=== PATIENT | female | born 1955 | race African-American/Black ===

== ENCOUNTER 2016-08-30 16:57 | Observation (INO) | payer OTHER ==
--- NOTE | ~2016-08-30 | CT16 ---
[facility] A Service of [facility] RADIOLOGY TEXT RESULTS PATIENT: JV SHUKLA LOCATION: [facility] 558-01 : 53 UNIT #: [id number] AGE: [address]: Jose Enrique Lafleur MD SEX: F ORDER DR: [id number] [facility] [address]. [place], [place] [address] [id number] I MR#: [id number] #: [id number] NAME: JV SHUKLA : 1955 SEX: F STUDY DATE/TIME: 08/30/2016 19:49 UNIT: [facility] ROOM: [facility] STUDY DESCRIPTION: CT Angio Chest for PE Attending Physician: Jose Enrique Lafleur M.D. Ordering Physician: Angie Ferrell M.D. Primary Care Physician: Beverly Gipson M.D. MEDICAL IMAGING REPORT This report is preliminary unless electronic signature is present EXAM CT angiography chest with contrast pulmonary embolism protocol DATE 08/30/2016 at 19:49 HISTORY 61-year female with nausea, vomiting, diarrhea and abdominal pain today. COMPARISON AP portable chest 08/30/2016 16:43. CTA chest 05/10/2014. PROCEDURE 2 mm axial images from the thoracic inlet to the upper abdomen with IV contrast administration. 3-D coronal MIP reformatted images were obtained. This CT exam was performed with one or more of the following radiation dose reduction techniques: automatic exposure control, adjustment of mA and/or kV according to patient size, and iterative reconstruction. FINDINGS There is no pulmonary embolism, aortic aneurysm or aortic dissection. There is some linear subsegmental atelectatic type changes in the lung bases but no consolidations are identified. There is no pericardial effusion. There is no pleural effusion. No pathologically enlarged lymph nodes are seen. Thyroid gland appears unremarkable. Diverticular changes are seen within the included portion of the colon. Remainder of the included upper abdominal organs are within normal limits. No acute or suspicious osseous abnormalities are identified. IMPRESSION 1. Linear subsegmental atelectatic type changes in the lung bases without consolidation. [facility] A Service of [facility] RADIOLOGY TEXT RESULTS PATIENT: JV SHUKLA LOCATION: [facility] 558-01 : 53 UNIT #: [id number] AGE: [address]: Jose Enrique Lafleur MD SEX: F ORDER DR: 2. No pulmonary embolism. No aortic aneurysm or aortic dissection. 3. Colonic diverticulosis. Dictated by... Meryl Yang M.D. THIS IS AN ELECTRONICALLY VERIFIED REPORT Meryl Yang M.D. at 08/31/2016 2:[address] [facility]/gael TD: 08/31/2016 10:09 JOB #: [id number] MEDICAL IMAGING REPORT COPY
--- NOTE | ~2016-08-30 | EKG ---
PATIENT: JV SHUKLA UNIT #: [id number] Ventricular Rate: 53 BPM Atrial Rate: 53 BPM P-R Interval: 176 ms QRS Duration: 84 ms Q-T Interval: 380 ms QTC Calculation(Bezet): 356 ms P [place]: 42 degrees Calculated R [place]: -7 degrees Calculated T [place]: -15 degrees Diagnosis Line: Sinus bradycardia Diagnosis Line: Possible Inferior infarct , age undetermined Diagnosis Line: Abnormal ECG Diagnosis Line: When compared with ECG of 31-JAN-2016 08:01, Diagnosis Line: Sinus rhythm has replaced Atrial fibrillation Diagnosis Line: Vent. rate has decreased BY 51 BPM Diagnosis Line: QT has shortened Diagnosis Line: Confirmed by MEÑO KELLY MD ([id number]) on Diagnosis Line: 09/01/2016 4:04:10 PM INTERPRETING MD: ROBIN BERG
--- NOTE | ~2016-08-30 | CT2 ---
[facility] A Service of [facility] RADIOLOGY TEXT RESULTS PATIENT: JV SHUKLA LOCATION: [facility] 5501-26 : 53 UNIT #: [id number] AGE: [address]: Jose Enrique Lafleur MD SEX: F ORDER DR: [id number] [facility] [address]. [place], [place] [address] [id number] I MR#: [id number] #: [id number] NAME: JV SHUKLA : 1955 SEX: F STUDY DATE/TIME: 08/30/2016 19:08 UNIT: [facility] ROOM: [facility] STUDY DESCRIPTION: CT Abd and Pelv W Cont Attending Physician: Jose Enrique Lafleur M.D. Ordering Physician: Angie Ferrell M.D. Primary Care Physician: Beverly Gipson M.D. MEDICAL IMAGING REPORT This report is preliminary unless electronic signature is present EXAM CT abdomen and pelvis with contrast DATE OF EXAMINATION 08/30/2016 HISTORY Nausea, vomiting, diarrhea and abdominal pain. COMPARISON MRI abdomen without and with contrast 09/28/2013. PROCEDURE 5 mL axial images from lung bases through lesser trochanters after intravenous contrast administration. Enteric contrast was not administered. This CT exam was performed with one or more of the following radiation dose reduction techniques: automatic exposure control, adjustment of mA and/or kV according to patient size, and iterative reconstruction. FINDINGS CT ABDOMEN: Extensive diverticular changes are seen within the colon. Limited evaluation of bowel due to lack of enteric contrast. The colon does appear mildly and generally thickened which could represent changes of infectious or inflammatory colitis. No free air, free fluid or abscess is seen. The liver, gallbladder, spleen, pancreas, adrenals and kidneys are within normal limits. The appendix is normal. CT PELVIS: Urinary bladder, prostate and rectum are within normal limits. Multiple calcified phleboliths in the pelvis. Degenerative loss of disc height is present at L5-S1. No acute or [facility] A Service [facility] RADIOLOGY TEXT RESULTS PATIENT: JV SHUKLA LOCATION: [facility] : [birth year] UNIT #: [id number] AGE: [address]: Jose Enrique Lafleur MD SEX: F ORDER DR: suspicious osseous abnormalities. Linear subsegmental atelectasis in the lung bases. IMPRESSION 1. There is mild generalized thickening throughout the colon which may represent changes of infectious or inflammatory colitis. Diverticular changes are scattered throughout the colon as well, without compelling CT evidence of acute diverticulitis. 2. The appendix is normal. 3. CT chest performed on the same day has been dictated separately. Dictated by... Meryl Yang M.D. THIS IS AN ELECTRONICALLY VERIFIED REPORT Meryl Yang M.D. at 08/31/2016 2:04 PM [facility]/hi TD: 08/31/2016 10:12 JOB #: [id number] MEDICAL IMAGING REPORT COPY
--- NOTE | ~2016-08-30 | EKG ---
PATIENT: JV SHUKLA UNIT #: [id number] Ventricular Rate: 54 BPM Atrial Rate: 54 BPM P-R Interval: 174 ms QRS Duration: 78 ms Q-T Interval: 378 ms QTC Calculation(Bezet): 358 ms P [place]: 64 degrees Calculated R [place]: -3 degrees Calculated T [place]: -12 degrees Diagnosis Line: Sinus bradycardia Diagnosis Line: Inferior infarct (cited on or before 30-AUG-2016) Diagnosis Line: Abnormal ECG Diagnosis Line: When compared with ECG of 30-AUG-2016 16:06, Diagnosis Line: (unconfirmed) Diagnosis Line: No significant change was found Diagnosis Line: Confirmed by MEÑO KELLY MD ([id number]) on Diagnosis Line: 09/01/2016 4:04:24 PM INTERPRETING MD: ROBIN BERG
--- NOTE | ~2016-08-30 | CR72 ---
[facility] A Service of [facility] RADIOLOGY TEXT RESULTS PATIENT: JV SHUKLA LOCATION: [place] [address] : 53 UNIT #: [id number] AGE: [address]: Jose Enrique Lafleur MD SEX: F ORDER DR: [id number] [facility] [address] [place], [place] [address] [id number] I MR#: [id number] #: [id number] NAME: JV SHUKLA : 1955 SEX: F STUDY DATE/TIME: 08/30/2016 16:43 UNIT: [facility] ROOM: [facility] STUDY DESCRIPTION: CR Chest Single View Portable Attending Physician: Kathy Powell M.D. Ordering Physician: Angie Ferrell M.D. Primary Care Physician: Beverly Gipson M.D. MEDICAL IMAGING REPORT This report is preliminary unless electronic signature is present EXAM Portable chest HISTORY Chest pain today. FINDINGS Minimal left basilar atelectasis or infiltrate. Remainder of the lungs are clear. Cardiac size and pulmonary vascularity are within normal limits and are stable compared to 01/31/2016. Metal anchors in the right humeral head. IMPRESSION Minimal left basilar subsegmental atelectasis or infiltrate. Remainder of the lungs are clear. Dictated by... Kody Cm M.D. THIS IS AN ELECTRONICALLY VERIFIED REPORT Kody Cm M.D. at 08/31/2016 2:17 PM [facility]/rudy TD: 08/31/2016 07:27 JOB #: [id number] MEDICAL IMAGING REPORT COPY
--- NOTE | ~2016-08-30 | HP ---
Unit #: [id number] #: [id number] Patient: JV SHUKLA [id number] [address] [place], [place] [address] [id number] I MR#: [id number] NAME: JV SHUKLA ROOM: [address] Age: 61 Sex: F Admission Date: 08/30/2016 : 1955 Attending Physician: Kathy Powell M.D. Primary Care Physician: Beverly Gipson M.D. HISTORY AND PHYSICAL CHIEF COMPLAINT Intractable nausea, vomiting, and diarrhea. HISTORY OF PRESENT ILLNESS This pleasant healthy 61-year-old female is admitted for gastroenteritis and chest pain. The patient was in her usual state of health until this morning when she felt hot, then developed intractable nonbloody nausea, vomiting, and diarrhea with lower abdominal crampy discomfort, fever, sweats, chills, and left chest pain. Patient states that her left chest pain is worse with cough, as well as with nausea and vomiting. She presented to this emergency department with stable vital signs and mildly hypertensive. She was treated with Zofran, Protonix, Bentyl, IV fluids, Lomotil, and Lortab, and currently is being given a dose of Zosyn. In the course of her evaluation, a CT scan of the abdomen and pelvis is most consistent with likely infectious process in the colon. The patient states that she was on antibiotics until about a week ago. PAST MEDICAL HISTORY Rotator cuff repair. ALLERGIES None. HOME MEDICATIONS Flexeril and vitamins. FAMILY HISTORY Negative for GI disease. SOCIAL HISTORY The patient lives alone. She is a lifelong nonsmoker and seldom drinks alcohol. REVIEW OF SYSTEMS Notable for nausea, vomiting, diarrhea, chest discomfort, fever, sweats, chills, cough, chest pain, and right leg issues for which she was recently placed on antibiotics and Flexeril. All other systems were reviewed and are negative. PHYSICAL EXAMINATION GENERAL: A pleasant, moderately obese, 61-year-old female who looks to be feeling ill. Unit #: [id number] #: [id number] Patient: JV SHUKLA VITAL SIGNS: Temperature 97.4, pulse 63, respirations 16, blood pressure 150/72, and O2 saturation is 100% on room air. HEENT: Eyes PERRLA. Extraocular muscles are intact. Pharynx is benign. NECK: Supple without adenopathy or thyromegaly. CHEST: Clear. Patient has reproducible left chest wall tenderness. CARDIAC: Normal S1 and S2, without S3, S4, or murmur. ABDOMEN: Bowel sounds are present. No hepatosplenomegaly, tenderness, or masses. EXTREMITIES: Without clubbing, cyanosis, or edema. Pedal pulses are present. NEUROLOGIC: Patient is awake, alert, and oriented. Cranial nerves are intact. Equal strength throughout. DIAGNOSTIC STUDIES LABORATORY: Hematocrit is 42.8, white blood count is 11.8, and normal platelet count. Negative cardiac markers. SMA-12: Glucose is 114 and sodium 132. Normal BNP, amylase, and lipase. IMAGING: Chest x-ray shows left atelectasis versus infiltrate. CTA of the chest shows atelectasis in the lung bases and diverticular disease. CT scan of the abdomen and pelvis shows mild generalized thickening in the colon consistent with infectious or inflammatory process. Diverticular disease also noted. CARDIOLOGY: EKG shows a sinus bradycardia, rate 54, with Q noted in AVF. ASSESSMENT 1. Gastroenteritis with intractable symptoms. 2. Mild hyponatremia. 3. Mild sinus bradycardia. 4. Reproducible left chest wall tenderness. PLANS 1. IV fluids and supportive treatment. 2. Stool cultures. 3. Repeat labs in the morning. 4. SCDs for DVT prophylaxis. 5. Obtain TSH. 1. Dictated by Fanny Brenner/brittany TD: 08/30/2016 22:15 JOB #: [id number] HISTORY AND PHYSICAL X Kathy Powell MD X HISTORY AND PHYSICAL
[2016-08-30 17:40] LABS: POC - CKMB 1.3 ng/mL (0.0-7.9); POC - TROPONIN <0.05 ng/mL (<=0.05)
[2016-08-30 18:05] LABS: BASOPHIL% 0.4 % (0-2.5); DIFF IND NO; EOSINOPHIL% 0.4 % (0.0-7.0); HEMATOCRIT 42.8 % (35.0-45.0); HEMOGLOBIN 13.7 gm/dL (12.0-16.0); LYMPHOCYTE# 1.4 X10e3 (1.0-3.5); LYMPHOCYTE% 12.1 % (17.0-45.0); MEAN CELL VOLUME 92.5 FL (83-96); MEAN CORPUSCULAR HEMOGLOBIN 29.6 PG (28-34); MEAN PLATELET VOLUME 8.5 FL (6.5-11.5); MONOCYTE# 0.6 X10e3 (0-1.0); MONOCYTE% 4.9 % (3.0-12.0); NEUTROPHIL# 9.7 X10e3 (1.5-7.1); NEUTROPHIL% 82.2 % (40-75); PLATELET COUNT 268 X10e3 (140-420); RED BLOOD COUNT 4.63 X10e (3.90-5.30); RED CELL DISTRIBUTION WIDTH 13.3 % (11.0-15.5); WHITE BLOOD COUNT 11.8 X10e3 (4.0-10.5)
[2016-08-30 18:29] LABS: ALBUMIN SERUM 4.2 g/dL (3.5-5.0); BILIRUBIN, DIRECT 0.2 mg/dL (0.0-0.2); BILIRUBIN,INDIRECT 0.8 mg/dL (0.0-0.9); PROTEIN TOTAL SERUM 8.1 g/dL (6.0-8.3)
[2016-08-30 18:55] LABS: BLOOD UREA NITROGEN 13 mg/dL (9-23); BUN/CREATININE RATIO 18.57; CALCIUM SERUM 8.8 mg/dL (8.4-10.2); CARBON DIOXIDE 24 mmol/L (22-31); CHLORIDE 103 mmol/L (100-111); CREATININE SERUM 0.7 mg/dL (0.6-1.4); GLOM FILT RATE Estimated ABOVE60 mL/min (>60); GLUCOSE FASTING 114 mg/dL (70-110); POTASSIUM 3.6 mmol/L (3.5-5.1); SODIUM 132 mmol/L (135-145)
[2016-08-30 20:26] LABS: URINE SOURCE CLEAN CATCH
[2016-08-30 20:35] LABS: URINE APPEARANCE CLEAR; URINE BILIRUBIN NEG (NEG); URINE BLOOD NEG (NEG); URINE COLOR YELLOW; URINE GLUCOSE NEG (NEG); URINE KETONE 1+ (NEG); URINE LEUKOCYTE ESTERASE NEG (NEG); URINE NITRATE NEG (NEG); URINE PROTEIN NEG (NEG); URINE SPECIFIC GRAVITY 1.033 (1.003-1.035); URINE UROBILINOGEN 0.2 MG/DL (NEG)
[2016-08-30 20:44] LABS: CULTURE INDICATED? NO
[2016-08-31] MEDS ORDERED: FLEXERIL PO (05:19)
[2016-08-31] MEDS ORDERED: THERA-M CAPLET1 EAC1 PO (05:20)
[2016-08-31 06:38] LABS: %MB 1.3 % (0.0-4.0); MB 1.9 ng/ml
[2016-08-31 06:56] LABS: BASOPHIL% 0.1 % (0-2.5); HEMATOCRIT 38.9 % (35.0-45.0); HEMOGLOBIN 12.5 gm/dL (12.0-16.0); LYMPHOCYTE# 1.3 X10e3 (1.0-3.5); LYMPHOCYTE% 10.7 % (17.0-45.0); MEAN CELL VOLUME 91.8 FL (83-96); MEAN CORPUSCULAR HEMOGLOBIN 29.5 PG (28-34); MEAN CORPUSCULAR HGB CONC 32.2 g/dL (30-36); MEAN PLATELET VOLUME 8.3 FL (6.5-11.5); MONOCYTE# 0.5 X10e3 (0-1.0); MONOCYTE% 4.1 % (3.0-12.0); NEUTROPHIL# 10.6 X10e3 (1.5-7.1); NEUTROPHIL% 85.1 % (40-75); PLATELET COUNT 269 X10e3 (140-420); RED BLOOD COUNT 4.24 X10e (3.90-5.30); RED CELL DISTRIBUTION WIDTH 12.9 % (11.0-15.5); WHITE BLOOD COUNT 12.5 X10e3 (4.0-10.5)
[2016-08-31 07:08] LABS: BLOOD UREA NITROGEN 9 mg/dL (9-23); CALCIUM SERUM 8.5 mg/dL (8.4-10.2); CARBON DIOXIDE 22 mmol/L (22-31); CHLORIDE 100 mmol/L (100-111); CREATININE SERUM 0.5 mg/dL (0.6-1.4); GLOM FILT RATE Estimated ABOVE60 mL/min (>60); GLUCOSE FASTING 98 mg/dL (70-110); POTASSIUM 3.3 mmol/L (3.5-5.1); SODIUM 130 mmol/L (135-145)
[2016-08-31 07:14] LABS: DIFF IND NO
[2016-08-31] MEDS ORDERED: FLAGYL PO (12:39)
[2016-08-31] MEDS ORDERED: ZOFRAN PO (12:40)
== END 2016-08-31 13:57 | disposition home or self-care (01) | DRG 392 ==
LOC: CED 16:57 → CEDOF 21:30 → C5B 08-31 02:21
PROVIDERS: Emergency Medicine; Internal Medicine
DX: K52.9 Noninfective gastroenteritis and colitis, unspecified (principal); J98.11 Atelectasis; K57.30 Diverticulosis of large intestine without perforation or abscess without bleeding; R07.89 Other chest pain; E87.1 Hypo-osmolality and hyponatremia; Z79.899 Other long term (current) drug therapy; R00.1 Bradycardia, unspecified
CPT/HCPCS: 36415; 71010; 71275; 74177; 80048; 80076; 81003; 82150; 82550; 82553; 83690; 83880; 84443; 84484; 85025; 93005; 96361; 96365; 96372; 96374; 96375; 99285; C9113; G0378; J0500; J2405; J2543; J2550; Q9967

== ENCOUNTER 2016-11-21 10:47 | Emergency (ER) | payer OTHER ==
--- NOTE | ~2016-11-21 | EKG ---
PATIENT: JV SHUKLA UNIT #: [id number] Ventricular Rate: 66 BPM Atrial Rate: 66 BPM P-R Interval: 182 ms QRS Duration: 74 ms Q-T Interval: 374 ms QTC Calculation(Bezet): 392 ms P [place]: 41 degrees Calculated R [place]: -11 degrees Calculated T [place]: -14 degrees Diagnosis Line: Normal sinus rhythm with sinus arrhythmia Diagnosis Line: Minimal voltage criteria for LVH, may be normal Diagnosis Line: variant Diagnosis Line: Inferior infarct (cited on or before 30-AUG-2016) Diagnosis Line: Abnormal ECG Diagnosis Line: When compared with ECG of 30-AUG-2016 16:37, Diagnosis Line: No significant change was found Diagnosis Line: Confirmed by PAVITHRA MURPHY MD ([id number]) on Diagnosis Line: 11/23/2016 9:37:44 PM INTERPRETING MD: JEFFREY BERG
[~2016-11-21 10:47] MED LIST: FLAGYL PO; FLEXERIL PO; THERA-M CAPLET1 EAC1 PO; ZOFRAN PO
[2016-11-21 12:02] LABS: BASOPHIL# 0.1 X10e3 (0-0.3); BASOPHIL% 0.5 % (0-2.5); EOSINOPHIL# 0.1 X10e3 (0-0.7); EOSINOPHIL% 0.5 % (0.0-7.0); HEMATOCRIT 42.8 % (35.0-45.0); HEMOGLOBIN 13.8 gm/dL (12.0-16.0); LYMPHOCYTE# 1.3 X10e3 (1.0-3.5); LYMPHOCYTE% 12.5 % (17.0-45.0); MEAN CELL VOLUME 93.8 FL (83-96); MEAN CORPUSCULAR HEMOGLOBIN 30.1 PG (28-34); MEAN CORPUSCULAR HGB CONC 32.1 g/dL (30-36); MEAN PLATELET VOLUME 8.8 FL (6.5-11.5); MONOCYTE# 0.6 X10e3 (0-1.0); MONOCYTE% 5.7 % (3.0-12.0); NEUTROPHIL# 8.7 X10e3 (1.5-7.1); NEUTROPHIL% 80.8 % (40-75); PLATELET COUNT 262 X10e3 (140-420); RED BLOOD COUNT 4.57 X10e (3.90-5.30); RED CELL DISTRIBUTION WIDTH 12.7 % (11.0-15.5); WHITE BLOOD COUNT 10.8 X10e3 (4.0-10.5)
[2016-11-21 12:04] LABS: DIFF IND NO
[2016-11-21 12:06] LABS: POC - CKMB <1.0 ng/mL (0.0-7.9); POC - TROPONIN <0.05 ng/mL (<=0.05)
[2016-11-21 12:30] LABS: ALBUMIN SERUM 4.3 g/dL (3.5-5.0); BILIRUBIN, DIRECT 0.2 mg/dL (0.0-0.2); BILIRUBIN,INDIRECT 0.4 mg/dL (0.0-0.9); BILIRUBIN,TOTAL 0.6 mg/dL (0.2-2.0); BUN/CREATININE RATIO 18.33; CALCIUM SERUM 9.2 mg/dL (8.4-10.2); CREATININE SERUM 0.6 mg/dL (0.6-1.4); GLOM FILT RATE Estimated 112.4 mL/min (>60); POTASSIUM 3.5 mmol/L (3.5-5.1); PROTEIN TOTAL SERUM 8.1 g/dL (6.0-8.3)
[2016-11-21 13:35] LABS: URINE APPEARANCE CLEAR; URINE BILIRUBIN NEG (NEG); URINE BLOOD NEG (NEG); URINE COLOR YELLOW; URINE GLUCOSE NEG (NEG); URINE KETONE NEG (NEG); URINE LEUKOCYTE ESTERASE NEG (NEG); URINE NITRATE NEG (NEG); URINE PH 8.5 (5-8); URINE PROTEIN NEG (NEG); URINE SOURCE CLEAN CATCH; URINE SPECIFIC GRAVITY 1.015 (1.003-1.035); URINE UROBILINOGEN 0.2 MG/DL (NEG)
== END 2016-11-21 14:09 | disposition home or self-care (01) ==
LOC: CED 10:47
PROVIDERS: Nurse Practitioner
DX: R10.9 Unspecified abdominal pain (principal); Z98.890 Other specified postprocedural states; Z91.013 Allergy to seafood
CPT/HCPCS: 36415; 80048; 80076; 81003; 82553; 83690; 84484; 85025; 93005; 96361; 96372; 96374; 96375; 99284; C9113; J0500; J2270; J2405

== ENCOUNTER 2016-11-29 10:21 | Inpatient (IN) | payer OTHER ==
--- NOTE | ~2016-11-29 | EKG ---
PATIENT: JV SHUKLA UNIT #: [id number] Ventricular Rate: 53 BPM Atrial Rate: 53 BPM P-R Interval: 156 ms QRS Duration: 78 ms Q-T Interval: 452 ms QTC Calculation(Bezet): 424 ms P [place]: 40 degrees Calculated R [place]: -11 degrees Calculated T [place]: 4 degrees Diagnosis Line: Sinus bradycardia Diagnosis Line: Possible Left atrial enlargement Diagnosis Line: Borderline ECG Diagnosis Line: When compared with ECG of 29-NOV-2016 14:29, Diagnosis Line: No significant change was found Diagnosis Line: Confirmed by LILIA MCCAIN MD ([id number]) on Diagnosis Line: 11/30/2016 11:00:53 PM INTERPRETING MD: MAXIM
--- NOTE | ~2016-11-29 | CO ---
Unit #: [id number] #: [id number] Patient: JV HUGGINS [id number] [address] [place], [place] [address] [id number] I MR#: [id number] NAME: JV HUGGINS ROOM: 326 Age: 61 Sex: F Admission Date: 11/29/2016 : 1955 Attending Physician: Win Chun M.D. Primary Care Physician: Beverly Gipson M.D. Consultation Date: 11/30/2016 CONSULTATION REPORT PRIMARY CARE PHYSICIAN Beverly Gipson. REASON FOR CONSULTATION Nausea, vomiting, diarrhea, and abdominal pain. HISTORY OF PRESENT ILLNESS Ms. Huggins is a very pleasant 61-year-old female, who works in the [employer]. She says she had three distinct episodes of nausea, vomiting, diarrhea, and abdominal pain that brought her to the emergency room each time and each time, she is being kept in for a few hours and discharged home. This time she comes in and has similar history. She also mentions significant cramping in the lower abdomen. There are no precipitating factors. She denies any history of intake for any outside food. There is no history of any fever or urinary symptoms. In fact off admission, she mentioned severe chest pain in the entire chest, and the patient is crying with the pain, has been on morphine. She is also being evaluated for cardiac etiology, upper chest pain, and is undergoing EKG and sequential cardiac enzymes. Initial evaluation in the emergency room showed presence of diverticulosis without any diverticulitis. PAST MEDICAL HISTORY Significant for a similar admission for nausea, vomiting, and diarrhea in August. PAST SURGICAL HISTORY Included a rotator cuff repair surgery. SOCIAL HISTORY Lives at home by herself. Does not smoke or drink alcohol. FAMILY HISTORY Both her parents are with lung cancer. ALLERGIES Shrimp and shellfish. HOME MEDICATIONS Include Zofran and dicyclomine. REVIEW OF SYSTEMS Detailed review of organ systems does not recent weight loss. No history of fever, chills, or rigors. No history of headache, seizures, chest Unit #: [id number] #: [id number] Patient: JV HUGGINS pain, or syncope. No history of cough, expectoration, or hemoptysis. No history of dysuria, hematuria, or pyuria. No history of focal seizures or extremity weakness. Rest of review of organ systems is unremarkable. PHYSICAL EXAMINATION GENERAL: She is alert and oriented, and appears quite uncomfortable because of the pain. VITAL SIGNS: Indicate a temperature of 98.0, pulse is 59 per minute and regular, respiratory rate is 18, and blood pressure is 168/69. She weighs 208 pounds and appears well nourished. HEENT: She has no pallor, icterus, lymphadenopathy, or peripheral edema. CARDIOVASCULAR: Normal heart sounds. No murmurs on auscultation. LUNGS: Reveal normal breath sounds. Good air entry. The patient does have tenderness over the chest wall. ABDOMEN: Soft and nontender. Liver and spleen not palpable. Bowel sounds normal. DIAGNOSTIC STUDIES LABORATORY RESULTS: Shows a white count of 12.4 without any left shift. The hemoglobin, hematocrit, and platelet counts are normal. Serum chemistry shows normal BUN and creatinine and electrolytes. Albumin being 3.9 yesterday. LFTs normal. It is noteworthy that the patient has also had a CT of the abdomen that shows diverticulosis without any diverticulitis. CLINICAL IMPRESSION 1. The patient is currently having significant chest pain and is being given frequent morphine and is undergoing cardiac evaluation. It will be best to wait for any GI evaluation before cardiac evaluation is finished and at least an acute coronary syndrome is ruled out. 2. Earlier before the patient was seen, I advised her to have an upper GI endoscopy and a sigmoidoscopy and this be post pond until after she is feeling much better from a standpoint of chest pain. Thank you very much for asking me to see this pleasant woman. I appreciate the consult. Dictated by... Fanny Mims/delma TD: 12/03/2016 15:40 JOB #: [id number] CC: Fanny Garcia M.D. Unit #: [id number] #: [id number] Patient: JV HUGGINS CONSULTATION REPORT Page 1 of 1 X Chip Ulrich MD CONSULTATION REPORT
--- NOTE | ~2016-11-29 | HP ---
Unit #: [id number] #: [id number] Patient: JV SHUKLA [id number] [address] [place], [place] [address] [id number] I MR#: [id number] NAME: JV SHUKLA ROOM: [address] Age: 61 Sex: F Admission Date: 11/29/2016 : 1955 Attending Physician: Eve Alcocer M.D. Primary Care Physician: Beverly Gipson M.D. HISTORY AND PHYSICAL CHIEF COMPLAINT Abdominal pain, nausea, vomiting, and diarrhea. HISTORY OF PRESENT ILLNESS The patient is a 61-year-old female with no significant past medical history who presented to the emergency department for evaluation of the above. The patient states that she has had a two to three-week history of intermittent abdominal pain, vomiting, and diarrhea. She states that she was feeling somewhat better for two to three days, but the symptoms returning this morning, and so she presented to the emergency department for further evaluation. She states that the pain is in the lower abdomen. She describes it as "cramping." There are no exacerbating or alleviating factors. She has had approximately 10 bouts of emesis and 10 bouts of diarrhea within the past 24 hours. She denies any urinary symptoms and no fever. During the course of her evaluation in the emergency department, she also developed chest pain in the mid chest that she describes as "sharp." It does not radiate. She never had a stress test and never had a cardiac catheterization. She did have a colonoscopy off [facility] more than five years ago (no records). In the emergency department, a CT of the abdomen and pelvis was done and showed diverticulosis but no evidence of diverticulitis. Initial EKG showed sinus bradycardia with a rate of 55 beats per minute. She is being admitted to [facility] for evaluation and further treatment. PAST MEDICAL HISTORY Admission to [facility] August 30, 2016, for intractable nausea, vomiting, diarrhea, and chest pain. There is no Discharge Summary, but it appears that she was discharged home the next day. PAST SURGICAL HISTORY Rotator cuff repair. SOCIAL HISTORY The patient lives alone. There is no tobacco or alcohol use. FAMILY HISTORY Notable for both parents having lung cancer. ALLERGIES Unit #: [id number] #: [id number] Patient: JV SHUKLA Shrimp and shellfish. HOME MEDICATIONS 1. Zofran. 2. Dicyclomine. Home medications will need to be reviewed and verified. REVIEW OF SYSTEMS A complete review of systems is negative except as indicated in the History of Present Illness. PHYSICAL EXAMINATION VITAL SIGNS: Temperature is 98, pulse 77, respirations 16, blood pressure 170/73, and oxygen saturation 99% on room air. GENERAL: Patient is an female who is awake, alert, and in no acute distress. HEENT: Head is atraumatic. Mucous membranes are dry. NECK: Supple. Trachea is midline. CARDIOVASCULAR: Regular rate and rhythm. LUNGS: Clear to auscultation bilaterally with no increased work of breathing. ABDOMEN: Soft. She is tender to palpation in the lower quadrants. Bowel sounds are present in all four quadrants. EXTREMITIES: Nontender with no pedal edema. NEUROLOGIC: Patient is awake and alert. She follows commands. PSYCHIATRIC: Mood and affect are normal. Patient is cooperative. SKIN: Skin of examined areas is warm and dry. DIAGNOSTIC STUDIES LABORATORY: Complete blood count is essentially normal. Comprehensive metabolic panel is notable for potassium of 3.4. Urinalysis is notable for 1+ ketones. IMAGING: CT of the abdomen and pelvis shows diverticulosis but no evidence of diverticulitis. CARDIOLOGY: EKG showed sinus bradycardia with a rate of 55 beats per minute. ASSESSMENT The patient is a 61-year-old female with: 1. Abdominal pain. 2. Intractable nausea, vomiting, and diarrhea. 3. Chest pain. 4. Hypokalemia. PLAN 1. Admit to intermediate level for observation. 2. N.p.o. and will advance to clear liquids as tolerated. 3. Normal saline at 125 mL/hour. 4. P.r.n. morphine. 5. P.r.n. Zofran. 6. Stool for ova and parasites, C. difficile, and culture and sensitivity. 7. Serial cardiac enzymes. 8. Check magnesium level. 9. Potassium/magnesium protocol. Unit #: [id number] #: [id number] Patient: JV SHUKLA 10. SCDs for DVT prophylaxis. 11. Repeat labs in the morning. 12. Protonix 40 mg IV daily. 13. Additional workup and consultants based on above. 1. Dictated by Fanny Garcia TD: 11/29/2016 18:16 JOB #: [id number] HISTORY AND PHYSICAL Page 1 of 1 X Eve Alcocer MD X HISTORY AND PHYSICAL
--- NOTE | ~2016-11-29 | EKG ---
PATIENT: JV SHUKLA UNIT #: [id number] Ventricular Rate: 55 BPM Atrial Rate: 55 BPM P-R Interval: 168 ms QRS Duration: 78 ms Q-T Interval: 418 ms QTC Calculation(Bezet): 399 ms P [place]: 39 degrees Calculated R [place]: 1 degrees Calculated T [place]: 7 degrees Diagnosis Line: Sinus bradycardia Diagnosis Line: Otherwise normal ECG Diagnosis Line: When compared with ECG of 21-NOV-2016 11:28, Diagnosis Line: Nonspecific T wave abnormality no longer evident Diagnosis Line: in Anterior leads Diagnosis Line: Confirmed by LILIA MCCAIN MD ([id number]) on Diagnosis Line: 11/29/2016 10:21:29 PM INTERPRETING MD: MAXIM
--- NOTE | ~2016-11-29 | OR ---
Unit #: [id number] #: [id number] Patient: JV SHUKLA [id number] [address] [address] [id number] I MR#: [id number] NAME: JV SHUKLA ROOM: [facility] Date of Procedure: 11/29/2016 Admission Date: 11/29/2016 Surgeon: Chip Ulrich M.D. : 1955 Attending Physician: Win Chun M.D. Primary Care Physician: Beverly Gipson M.D. OPERATIVE REPORT ADDITIONAL ATTENDING PHYSICIAN Win Chun M.D. PRIMARY CARE PHYSICIAN Beverly Gipson. PREOPERATIVE DIAGNOSES Nausea, vomiting, and epigastric pain. PROCEDURE PERFORMED Upper gastrointestinal endoscopy. POSTOPERATIVE DIAGNOSES Completely normal examination up to third part of duodenum. A biopsy was obtained from the antrum for CLOtest. RECOMMENDATIONS The patient can be discharged home today and she will have an outpatient colonoscopy in the next few weeks which is already being scheduled. SEDATION USED MAC. DESCRIPTION OF PROCEDURE Following detailed explanation of potential risks and complications of an upper endoscopy, namely perforation, bleeding, and complication related to sedation, the patient was brought to GI lab and laid in the left lateral decubitus position. Lubricated tip of the Olympus video upper endoscope was passed through the bite block into the proximal esophagus under direct vision. The entire esophageal mucosa was examined and appeared normal. Z-line was nicely demarcated, there being no esophagitis or hiatus hernia. The scope was then advanced into the gastric cavity and the latter was insufflated. Mucosa of the fundus, body, and antrum was examined and appeared unremarkable. Pylorus was intubated with visualization of the normal duodenal bulb and second and third part of duodenum. Upon withdrawal and retroflexion, incisura, cardia, and greater curve was examined and no additional findings were noted. A biopsy was obtained from the antrum for CLOtest. The scope was then withdrawn in the distal esophagus. Entire esophageal mucosa was examined all the way up to pharynx. No additional findings were noted. The scope was then withdrawn all the way up to pharynx. No additional findings were noted. The Unit #: [id number] #: [id number] Patient: JV SHUKLA patient tolerated the procedure without any postprocedure complications. Dictated by... Fanny Mims TD: 12/03/2016 14:09 JOB #: [id number] OPERATIVE REPORT Page 1 of 1 X Chip Ulrich MD X PROCEDURE OPERATIVE NOTE
--- NOTE | ~2016-11-29 | ST ---
Unit #: [id number] #: [id number] Patient: JV SHUKLA [id number] [address] [address] [id number] I MR#: [id number] NAME: JV SHUKLA : 1955 SEX: F STUDY DATE/TIME: 12/01/2016 UNIT: C3A PCU ROOM: [address] [place] [address] DESCRIPTION: EKG portion of exercise stress Attending Physician: Win Chun M.D. Primary Care Physician: Beverly Gipson M.D. CARDIOLOGY REPORT EXAM EKG portion of exercise Cardiolite stress. REASON FOR EXAM Chest pain and nausea and vomiting. DESCRIPTION Baseline EKG reveals sinus rhythm with a ventricular rate of [address]-T wave changes noted. The patient exercised on a treadmill according to Ken protocol for 7 minutes and 42 seconds, achieving a workload of 9.60 METs. Maximal heart rate is 151 BPM, which represents 96% of the maximal age predicted heart rate. Maximal blood pressure was 162/84 mmHg. There were no complaints of chest pain. There were no sustained arrhythmias noted. There were no ST-T wave changes to suggest ischemia. The test was stopped due to protocol completion. IMPRESSION 1. Negative EKG portion of exercise Cardiolite stress test. 2. There were no complaints of chest pain. 3. There were no sustained arrhythmias noted. 4. There were no ST-T wave changes to suggest ischemia. 5. Please correlate with Cardiolite images. Dictated by... Samantha Ware APRN for Fanny Nathan/lora TD: 12/02/2016 08:25 JOB #: [id number] CARDIOLOGY REPORT Page 1 of 1 X CARDIOLOGY REPORT
--- NOTE | ~2016-11-29 | EKG ---
PATIENT: JV SHUKLA UNIT #: [id number] Ventricular Rate: 61 BPM Atrial Rate: 61 BPM P-R Interval: 146 ms QRS Duration: 80 ms Q-T Interval: 406 ms QTC Calculation(Bezet): 408 ms Calculated R [place]: -26 degrees Calculated T [place]: -21 degrees Diagnosis Line: Normal sinus rhythm Diagnosis Line: Inferior infarct , age undetermined Diagnosis Line: Abnormal ECG Diagnosis Line: No previous ECGs available Diagnosis Line: Confirmed by LILIA MCCAIN MD ([id number]) on Diagnosis Line: 11/30/2016 10:57:25 PM INTERPRETING MD: MAXIM
--- NOTE | ~2016-11-29 | CT2 ---
[facility] A Service of [facility] RADIOLOGY TEXT RESULTS PATIENT: JV SHUKLA LOCATION: [facility] 326-01 : [birth year] UNIT #: [id number] AGE: [address]: Eve Alcocer MD SEX: F ORDER DR: [id number] [id number] [facility]. [place], [place] [address] [id number] I MR#: [id number] Acc #: [id number] NAME: JV SHUKLA : 1955 SEX: F STUDY DATE/TIME: 11/29/2016 13:03 UNIT: [address] ROOM: [facility] STUDY DESCRIPTION: CT Abd and Pelv W Cont Attending Physician: Eve Alcocer M.D. Ordering Physician: Flako Gutiérrez M.D. Primary Care Physician: Beverly Gipson M.D. MEDICAL IMAGING REPORT This report is preliminary unless electronic signature is present EXAM CT abdomen and pelvis with contrast. INDICATIONS Generalized abdominal pain and nausea and diarrhea for a week. Comparison study is 08/30/16. TECHNIQUE Patient was given 100 mL Isovue-370 and axial 5-mm images were obtained through the abdomen and pelvis. This CT exam was performed with one or more of the following radiation dose reduction techniques: Automatic exposure control, adjustment of mA and/or kV according to patient size, and iterative reconstruction. FINDINGS Lung bases are clear. The liver, gallbladder, spleen, pancreas, adrenal glands and kidneys are normal in appearance. The aorta is normal in size and there is no adenopathy. There are numerous colonic diva, most numerous in the left colon. There is no evidence of colitis or diverticulitis. The appendix is normal. The bladder, uterus and adnexal regions are normal. The bones show degenerative changes in the lumbar spine facet joints. IMPRESSION 1. Colonic diverticulosis without evidence of diverticulitis or colitis or obstruction. 2. The appendix is normal. 3. The study is otherwise normal. Dictated by... [facility] A Service of [facility] RADIOLOGY TEXT RESULTS PATIENT: JV SHUKLA LOCATION: [facility] 326- : [birth year] UNIT #: [id number] AGE: [address]: Eve Alcocer MD SEX: F ORDER DR: Reed Morillo M.D. THIS IS AN ELECTRONICALLY VERIFIED REPORT Reed Morillo M.D. at 11/30/2016 7:27 AM SWAPNA/mirta TD: 11/29/2016 22:23 JOB #: [id number] MEDICAL IMAGING REPORT Page 1 of 1 COPY
--- NOTE | ~2016-11-29 | DS ---
Unit #: [id number] #: [id number] Patient: JV SHUKLA [id number] [address] [place], [place] [address] [id number] I MR#: [id number] NAME: JV SHUKLA ROOM: 326 Age: 61 Sex: F Admission Date: 11/29/2016 : 1955 Discharge Date: 12/02/2016 Attending Physician: Win Chun M.D. Primary Care Physician: Beverly Gipson M.D. DISCHARGE SUMMARY DISCHARGE DIAGNOSES 1. Suprapubic abdominal pain. No urinary tract infection. Patient will have endoscopy per Dr. Ulrich today. 2. Intractable nausea and vomiting, resolved at this time. 3. Diarrhea on admission, resolved without any additional bowel movements during this hospitalization. 4. Marijuana usage. Spoken with patient about cannabinoid-induced nausea and vomiting (1) cessation. 5. Atypical chest pain. Had normal stress test. 6. Hypokalemia and hypomagnesemia, likely due to vomiting and diarrhea. Resolved with replacement. SAFEKEEPING CLERK Dr. Ulrich of gastroenterology. PROCEDURES Patient will have endoscopy per Dr. Ulrich today. Please refer to his full dictated report for further details. DIAGNOSTIC STUDIES CARDIOVASCULAR: Patient also had a stress test on 12/01/16 and it was reported to be normal per cardiology. Two-dimensional echo: Summary of systolic ventricular function is normal, estimated to be 60%. Mild concentric left ventricular hypertrophy. Mild tricuspid regurgitation is present. Mild pulmonary valvular regurgitation is present. Right ventricular systolic pressure is 32 mmHg. No evidence of any pericardial effusion. IMAGING: CT abdomen and pelvis on 11/29/16. Impression: 1. Colonic diverticulosis without evidence of diverticulitis or colitis or obstruction. 2. The appendix is normal. 3. The study is otherwise normal. LABORATORY: Today's labs include BMP: Glucose 77, BUN 10, creatinine 0.6, sodium 140, potassium 3.9, chloride 111, CO2 22, calcium is 8.2, magnesium is 2.1 when assessed, AST was 17, ALT was 10, and alk phos was 44. Amylase 21 and lipase 18. Cardiac enzymes were all unremarkable serially. CBC with WBC of 8.2, RBC 4.04, hemoglobin 12.1, hematocrit is 37.6, MCV is 93.3, MCH is 30.1, MCHC is 32.2, RDW 12.7, platelets are 237, and MPV is 8.5. HOSPITAL COURSE Unit #: [id number] #: [id number] Patient: JV SHUKLA Patient is a pleasant 61-year-old, -[place] female with past medical history of nothing significant, except for intractable nausea, vomiting, and diarrhea and was hospitalized back on August 30, 2016, and was discharged the following day who presented back to the emergency department for, again, persistent symptoms of abdominal pain, nausea, vomiting, and diarrhea. Please note that patient said that she had a D and C after one episode of menstruation. This was about three weeks ago. Patient states that she tolerated the procedure well without any additional recurrent bleeding after the first two initial days and no abdominal pain or fever at home. No other drainage. She presented back to the emergency department with symptoms of abdominal pain, nausea, vomiting, and diarrhea. She said that she had done better 2-3 days after initial visit back in August. Pain is described as cramping in her suprapubic region. There are no alleviating or exacerbating factors. She had about 10 bouts of emesis and 10 bouts of diarrhea 24 hours prior to admission. Denies any urinary symptoms. Denies fevers. Denies leg pain. In the emergency department, during workup, she developed chest pain described as burning like in her throat. She was admitted for intractable nausea and vomiting as well as atypical chest pain. Patient was unable to provide any stool sample since she has been hospitalized here. Dr. Ulrich of gastroenterology was consulted who had originally planned for an upper endoscopy and sigmoidoscopy. Patient was ready following her prep when she began to develop severe chest pain described as burning sensation in her throat as well as with nausea and vomiting. Therefore, endoscopy was held at that time. (2) were done, which were both unremarkable. Cardiac enzymes were obtained, which were nondetectable. She had a stress test and echo the following day, which were stated to be normal and the echo result as stated above so that her chest pain was atypical. Therefore, we will work up for intractable nausea and vomiting through endoscopy per Dr. Ulrich's guidance. I did perform a urine drug screen, which was positive for marijuana. Patient tells me that she uses marijuana socially. She would smoke a joint every now and then and she drinks alcohol. I stressed to patient to abstain from alcohol and marijuana and it likely is inducing cannabinoid hyperemesis. She voiced understanding. At this time, she is stable and, if stable after endoscopy with Dr. Ulrich, she could be discharged home. DISCHARGE CONDITION Stable to home. DISCHARGE INSTRUCTIONS 1. Follow up with primary care physician within 1-2 weeks. 2. Follow up with Dr. Ulrich as needed. 3. Activities: None restricted. 4. Diet: None restricted. DISCHARGE MEDICATIONS Her meds include: 1. Lopressor 50 mg orally twice daily. Hold if systolic blood pressure is less than 110. 2. Vitamin E 400 units orally daily. 3. Multivitamin 1 tablet orally daily. 4. Vitamin D 400 units orally daily. 5. Vitamin B12 1000 mcg orally daily. 6. Protonix 40 mg orally daily. Unit #: [id number] #: [id number] Patient: JV SHUKLA Dictated by... Mame Lilly PA-C for Fanny Bullock/morelia TD: 12/03/2016 07:53 JOB #: [id number] DISCHARGE SUMMARY Page 1 of 1 X X DISCHARGE SUMMARY
--- NOTE | ~2016-11-29 | TH ---
Unit #: [id number] #: [id number] Patient: JV SHUKLA [id number] [address] [address] [id number] I MR#: [id number] NAME: JV SHUKLA : 1955 SEX: F STUDY DATE/TIME: 12/01/2016 UNIT: C3A PCU ROOM: [facility] STUDY DESCRIPTION: Exercise stress test - Nuclear Attending Physician: Win Chun M.D. Primary Care Physician: Beverly Gipson M.D. CARDIOLOGY REPORT PROCEDURE PERFORMED Exercise Cardiolite stress test - Nuclear portion. PROCEDURE Using technetium 99m-labeled Cardiolite, rest and stress SPECT images were obtained. Multiple SPECT images were obtained in various views, including horizontal and vertical long axis and short axis views of the left ventricle. Images were obtained by gated SPECT method. The patient was administered 10.95 mCi of Cardiolite at rest. The patient was administered 32.7 mCi of Cardiolite at peak exercise. Total exercise time is 7 minutes and 42 seconds. On the stress images, there is normal perfusion noted. The rest images show normal perfusion. Comparing the rest and stress images, there is no stress-induced ischemia noted. The left ventricular ejection fraction is calculated to be 64%. There is no focal wall motion abnormality seen. CONCLUSION 1. No stress-induced ischemia noted. 2. The left ventricular ejection fraction is calculated to be 64%. 3. There is no focal wall motion abnormality seen. 4. Normal exercise Cardiolite stress test. Dictated by... Fanny Nathan/navi TD: 12/01/2016 14:21 JOB #: [id number] CARDIOLOGY REPORT Page 1 of 1 X Padmini Escobedo MD <ELECTRONICALLY SIGNED> 01/16/17 1429 CARDIOLOGY REPORT
[2016-11-29 11:12] LABS: BASOPHIL% 0.2 % (0-2.5); EOSINOPHIL# 0.1 X10e3 (0-0.7); HEMOGLOBIN 13.5 gm/dL (12.0-16.0); LYMPHOCYTE# 1.6 X10e3 (1.0-3.5); LYMPHOCYTE% 16.6 % (17.0-45.0); MEAN CELL VOLUME 93.1 FL (83-96); MEAN CORPUSCULAR HEMOGLOBIN 29.9 PG (28-34); MEAN CORPUSCULAR HGB CONC 32.1 g/dL (30-36); MEAN PLATELET VOLUME 8.2 FL (6.5-11.5); MONOCYTE# 0.5 X10e3 (0-1.0); MONOCYTE% 4.9 % (3.0-12.0); NEUTROPHIL# 7.3 X10e3 (1.5-7.1); NEUTROPHIL% 77.3 % (40-75); PLATELET COUNT 265 X10e3 (140-420); RED BLOOD COUNT 4.51 X10e (3.90-5.30); RED CELL DISTRIBUTION WIDTH 12.7 % (11.0-15.5); WHITE BLOOD COUNT 9.5 X10e3 (4.0-10.5)
[2016-11-29 11:19] LABS: DIFF IND NO
[2016-11-29 11:39] LABS: ALBUMIN SERUM 3.9 g/dL (3.5-5.0); BILIRUBIN, DIRECT 0.1 mg/dL (0.0-0.2); BILIRUBIN,INDIRECT 0.8 mg/dL (0.0-0.9); BILIRUBIN,TOTAL 0.9 mg/dL (0.2-2.0); BUN/CREATININE RATIO 16.66; CALCIUM SERUM 8.9 mg/dL (8.4-10.2); CREATININE SERUM 0.6 mg/dL (0.6-1.4); GLOM FILT RATE Estimated 112.4 mL/min (>60); POTASSIUM 3.4 mmol/L (3.5-5.1); PROTEIN TOTAL SERUM 7.7 g/dL (6.0-8.3)
[2016-11-29 12:14] LABS: URINE SOURCE CLEAN CATCH
[2016-11-29 12:19] LABS: URINE APPEARANCE CLEAR; URINE BILIRUBIN NEG (NEG); URINE BLOOD NEG (NEG); URINE COLOR YELLOW; URINE GLUCOSE NEG (NEG); URINE KETONE 1+ (NEG); URINE LEUKOCYTE ESTERASE NEG (NEG); URINE NITRATE NEG (NEG); URINE PROTEIN NEG (NEG); URINE SPECIFIC GRAVITY 1.011 (1.003-1.035); URINE UROBILINOGEN 0.2 MG/DL (NEG)
[2016-11-29 12:35] LABS: CULTURE INDICATED? NO
[2016-11-29] MEDS ORDERED: NATURAL VITA400 UNI3 PO (16:17)
[2016-11-29] MEDS ORDERED: VITAMIN B12 PO (16:18)
[2016-11-29] MEDS ORDERED: MULTIVITAMINS1 EAC2 PO (16:18)
[2016-11-29 17:55] LABS: MAGNESIUM 1.7 mg/dL (1.6-3.0)
[2016-11-29 18:15] LABS: %MB 1.3 % (0.0-4.0); MB 1.3 ng/ml
[2016-11-29] MEDS ORDERED: VITAMIN D400 UNI1 PO (19:25)
[2016-11-30 06:02] LABS: HEMATOCRIT 38.7 % (35.0-45.0); HEMOGLOBIN 12.5 gm/dL (12.0-16.0); MEAN CELL VOLUME 93.6 FL (83-96); MEAN CORPUSCULAR HEMOGLOBIN 30.3 PG (28-34); MEAN CORPUSCULAR HGB CONC 32.4 g/dL (30-36); MEAN PLATELET VOLUME 8.1 FL (6.5-11.5); RED BLOOD COUNT 4.13 X10e (3.90-5.30); RED CELL DISTRIBUTION WIDTH 12.5 % (11.0-15.5); WHITE BLOOD COUNT 12.4 X10e3 (4.0-10.5)
[2016-11-30 06:41] LABS: ALBUMIN SERUM 3.4 g/dL (3.5-5.0); BILIRUBIN,TOTAL 1.6 mg/dL (0.2-2.0); BUN/CREATININE RATIO 13.33; CALCIUM SERUM 8.1 mg/dL (8.4-10.2); CREATININE SERUM 0.6 mg/dL (0.6-1.4); GLOM FILT RATE Estimated 112.4 mL/min (>60); MAGNESIUM 2.4 mg/dL (1.6-3.0); POTASSIUM 3.5 mmol/L (3.5-5.1); PROTEIN TOTAL SERUM 6.6 g/dL (6.0-8.3)
[2016-11-30 15:03] LABS: AMPHETAMINE NEG (NEG); BARBITURATES NEG (NEG); BENZODIAZEPINES NEG (NEG); COCAINE NEG (NEG); MARIJUANA POS (NEG); OPIATES POS (NEG); TRICYCLIC ANTIDEPRESSANTS NEG (NEG); U METHADONE NEG (NEG)
[2016-11-30 18:20] LABS: %MB 1.6 % (0.0-4.0); MB 1.5 ng/ml
[2016-11-30 21:24] LABS: %MB 1.6 % (0.0-4.0); MB 1.4 ng/ml
[2016-12-01 03:08] LABS: HEMATOCRIT 42.7 % (35.0-45.0); HEMOGLOBIN 13.7 gm/dL (12.0-16.0); MEAN CORPUSCULAR HEMOGLOBIN 29.9 PG (28-34); MEAN CORPUSCULAR HGB CONC 32.1 g/dL (30-36); MEAN PLATELET VOLUME 8.5 FL (6.5-11.5); RED BLOOD COUNT 4.59 X10e (3.90-5.30); RED CELL DISTRIBUTION WIDTH 12.5 % (11.0-15.5); WHITE BLOOD COUNT 11.8 X10e3 (4.0-10.5)
[2016-12-01 05:05] LABS: ALBUMIN SERUM 3.9 g/dL (3.5-5.0); BILIRUBIN,TOTAL 1.6 mg/dL (0.2-2.0); CALCIUM SERUM 8.5 mg/dL (8.4-10.2); CREATININE SERUM 0.5 mg/dL (0.6-1.4); GLOM FILT RATE Estimated 119.4 mL/min (>60); MAGNESIUM 1.9 mg/dL (1.6-3.0); POTASSIUM 3.9 mmol/L (3.5-5.1); PROTEIN TOTAL SERUM 7.3 g/dL (6.0-8.3)
[2016-12-01 05:23] LABS: %MB 1.5 % (0.0-4.0); MB 1.4 ng/ml
[2016-12-02 07:29] LABS: HEMATOCRIT 37.7 % (35.0-45.0); HEMOGLOBIN 12.1 gm/dL (12.0-16.0); MEAN CELL VOLUME 93.3 FL (83-96); MEAN CORPUSCULAR HEMOGLOBIN 30.1 PG (28-34); MEAN CORPUSCULAR HGB CONC 32.2 g/dL (30-36); MEAN PLATELET VOLUME 8.5 FL (6.5-11.5); RED BLOOD COUNT 4.04 X10e (3.90-5.30); RED CELL DISTRIBUTION WIDTH 12.7 % (11.0-15.5); WHITE BLOOD COUNT 8.2 X10e3 (4.0-10.5)
[2016-12-02 08:20] LABS: BILIRUBIN,TOTAL 1.4 mg/dL (0.2-2.0); BUN/CREATININE RATIO 16.66; CALCIUM SERUM 8.2 mg/dL (8.4-10.2); CREATININE SERUM 0.6 mg/dL (0.6-1.4); GLOM FILT RATE Estimated 112.4 mL/min (>60); MAGNESIUM 2.1 mg/dL (1.6-3.0); POTASSIUM 3.9 mmol/L (3.5-5.1); PROTEIN TOTAL SERUM 5.5 g/dL (6.0-8.3)
[2016-12-02] MEDS ORDERED: LOPRESSOR PO (18:20)
[2016-12-02] MEDS ORDERED: PROTONIX PO (18:22)
[2016-12-02] MEDS ORDERED: ZOFRAN PO (18:22)
== END 2016-12-02 22:00 | disposition home or self-care (01) | DRG 392 ==
LOC: CED 10:21 → C3A PCU 16:10 → CEDOF 16:10 → CED 16:53 → CEDOF 16:53 → C3A PCU 18:36 → CEDOF 18:36 → C3A PCU 11-30 08:34
PROVIDERS: Emergency Medicine; Family Medicine; Physician Assistant Medical
PROC: 0DB78ZX Excision of Stomach, Pylorus, Via Natural or Artificial Opening Endoscopic, Diagnostic (ICD-10-PCS; principal; 2016-11-29)
PROC: B24BZZZ Ultrasonography of Heart with Aorta (ICD-10-PCS; 2016-12-01)
DX: R10.30 Lower abdominal pain, unspecified (principal); E83.42 Hypomagnesemia; K57.90 Diverticulosis of intestine, part unspecified, without perforation or abscess without bleeding; R11.2 Nausea with vomiting, unspecified; R19.7 Diarrhea, unspecified; F12.90 Cannabis use, unspecified, uncomplicated; R07.89 Other chest pain; E87.6 Hypokalemia; Z91.013 Allergy to seafood; Z80.1 Family history of malignant neoplasm of trachea, bronchus and lung
CPT/HCPCS: 36415; 74177; 78452; 80048; 80053; 80061; 80076; 80307; 81003; 82550; 82553; 83690; 83735; 84132; 84484; 85025; 85027; 87077; 93005; 93017; 93306; 96361; 96372; 96374; 96375; 99285; A9500; C9113; J0500; J2060; J2270; J2405; J2765; J3475; Q9967

== ENCOUNTER → 2017-01-01 | Day surgery (SDC) | payer OTHER ==
[~2017-01-01] MED LIST changes: +LOPRESSOR PO; +MULTIVITAMINS1 EAC2 PO; +NATURAL VITA400 UNI3 PO; +PROTONIX PO; +VITAMIN B12 PO; +VITAMIN D400 UNI1 PO
--- NOTE | ~2017-01-01 | OR ---
Unit #: [id number] #: [id number] Patient: JV SHUKLA [id number] [address] [address] [id number] MR#: [id number] NAME: JV SHUKLA ROOM: Date of Procedure: 01/01/2017 Admission Date: 01/01/2017 Surgeon: Chip Ulrich M.D. : 1955 Attending Physician: Chip Ulrich M.D. Referring Physician: Chip Ulrich M.D. Primary Care Physician: Beverly Gipson M.D. OPERATIVE REPORT PRIMARY CARE PHYSICIAN Dr. Beverly Gipson. PREOPERATIVE DIAGNOSIS Colorectal cancer screening. PROCEDURES PERFORMED Colonoscopy and polypectomy. POSTOPERATIVE DIAGNOSES 1. The patient had 2 sessile polyps, one each in the proximal ascending and proximal transverse colon. These were both about 5 mm each and were removed using snare polypectomy. 2. Mild sigmoid wang diverticulosis. 3. Rest of the examination up to cecum and terminal ileum was normal. The quality of the prep was excellent. 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 RECOMMENDATIONS Repeat colonoscopy in 5 years. SEDATION USED MAC. DESCRIPTION OF PROCEDURE Following detailed explanation of the potential risks and complications of a colonoscopy, namely perforation, bleeding, complication related to sedation, the patient was brought to GI lab and laid in the left lateral decubitus position. A digital rectal examination was performed, which was normal. Lubricated tip of the Olympus video colonoscope was inserted through the anus and advanced under direct vision. The scope was advanced and passed up to sigmoid into descending colon. Multiple medium-sized diverticula were noted in this area. The scope tip was then navigated all the way up to cecum with visualization of the ileocecal valve and the appendiceal orifice. Preparation was excellent with good visualization and photodocumentation was obtained. Last few inches of the terminal ileum were also visualized and appeared normal. Successive segments of the colonic mucosa were examined upon withdrawal. The patient was noted to have 2 sessile polyps, the first one was in the proximal ascending colon, the second one in the proximal transverse colon. Both were diminutive and were removed using snare polypectomy. They were retrieved Unit #: [id number] #: [id number] Patient: JV SHUKLA and sent for histology. The patient also had 2 lipomas in the ascending colon, which were coincidental. In addition, mild diffuse wang diverticulosis was also noted. The scope was then withdrawn. The patient did not have any hemorrhoids at anal verge. She tolerated the procedure without any postprocedure complications. Dictated by... Fanny Mims/delma TD: 01/02/2017 00:49 JOB #: [id number] OPERATIVE REPORT Page 1 of 1 X Chip Ulrich MD X PROCEDURE OPERATIVE NOTE
== END | disposition home or self-care (01) ==
LOC: COPS 10:25
DX: Z12.11 Encounter for screening for malignant neoplasm of colon (principal); K63.5 Polyp of colon; K57.30 Diverticulosis of large intestine without perforation or abscess without bleeding; K21.9 Gastro-esophageal reflux disease without esophagitis; I10 Essential (primary) hypertension; Z87.01 Personal history of pneumonia (recurrent); Z98.890 Other specified postprocedural states; Z91.013 Allergy to seafood; Z79.899 Other long term (current) drug therapy
CPT/HCPCS: J2250